=== PATIENT | female | born 1940 | race Caucasian/White ===

== ENCOUNTER 2017-07-13 22:34 | Emergency (ER) | payer MEDICARE, OTHER ==
[~2017-07-13] VITALS: Ht 157.5 cm; Wt 89.4 kg
[2017-07-13 23:02] LABS: HEMOGLOBIN 14.4 g/dL (12.2-16.2); LYMPH # 2.8 K/mm3 (0.7-4.5); LYMPH % 17.5 % (10-50.0)
[2017-07-13 23:29] LABS: NEUTROPHILS 83 % (42-76)
[2017-07-13 23:30] LABS: BUN 9 mg/dL (7-18); GFR (ESTIMATED) 98 ML/MIN (59-)
--- NOTE | 2017-07-14 00:24 | Emergency Room Report ---
History of Present Illness Time Seen by [id number] Presenting Problem in Triage Pt arrived:Walked Presenting Problem:PT C/O SOA THAT HAS GOTTEN PROGRESSIVELY WORSE THE EVENING HAS WENT ON. 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 N Clinical Suspician of Infection? N Mental Status: 1 - Regular (Normal Baseline) Sepsis Risk:Possible Sepsis Risk Have you (or family members/close friends) recently traveled outside the [place]? N If Yes, where/when: Have you had exposure to infectious disease within the past month? N TB? Other? 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 #60 Diclofenac Sodium 75 MG PO DAILY #60 FLUTICASONE/SALMETEROL (Advair 250-50 Diskus) 1 PUFF IN BID #60 OMEPRAZOLE MAGNESIUM (Prilosec 20MG) 20 MG PO DAILY History Medical History General CAD? No Angina: No NH: No Hypertension? Yes Hyperlipidemia? Yes CHF? No DVT? No PE? No COPD? No Asthma? Yes Anemia? No GERD? No Gastric ulcers? No GI Bleed? No Hernia? No Thyroid Problems? No Hypothyroidism? No CVA? No Seizures? No Diabetes? No End Stage Renal Disease? No UTI? Yes Stones? No BPH? No GB Disease: Yes Nephritic Syndrome? No Asplenia? No Hepatitis? No Sickle Cell Disease? No Arthritis? No Migraines? No Cataracts? Yes Glaucoma? No MRSA? No HIV? No TB? No Anxiety? No Depression? No Cancer? No More? No Immunization Hx DT/Tetanus < 1 Year Ago Flu 2013-14FSN Pneumonia Received In Past Surgical Hx Previous Surgery?Y HYSTERECTOMY GALLBLADDER Cholecystectomy APPENDECTOMY Family History Family Hx Diabetes No CAD Yes Hypertension Yes Hyperlipidemia No Cancer Yes TB No Social History Smoking Hx Smoker: Never Smoker Tobacco: No Alcohol Alcohol: No Drugs none Review of Systems All Other Systems Reviewed and Negative Constitutional denies fever Eyes denies drainage ENT denies: ear discharge, epistaxis, throat pain. Respiratory see HPI, cough, shortness of breath, denies wheezing Cardiovascular denies chest pain, denies palpitations, denies syncope Gastrointestinal see HPI, abdominal pain, denies diarrhea, denies vomiting Genitourinary denies: dysuria, frequency, hesitancy, hematuria. Musculoskeletal denies back pain, denies joint pain, denies joint swelling, denies neck pain Skin denies rash Psychiatric/Neurological denies headache, denies seizure Physical Exam Vital Signs Vital Signs Date Time Temp Pulse Resp B/P Pulse O2 O2 Flow FiO2 Ox Delivery Rate 07/14 0152 90 20 162/104 97 07/14 0111 95 20 173/105 97 4 07/14 0011 102 20 190/120 97 4 07/13 2326 110 20 206/120 95 4 07/13 2235 108 20 207/119 80 - WBC >12,000 or <4,000 or 10% bands? 2 or more SIRS Criteria Met? B/P:162/104 MAP:148 Creatinine >2.0? UA output<0.5ml/kg/hr for 2 hrs? Platelet count >100,000? Lactate >2.0mmol/1? INR >1.2 or PTT > than 60 sec? Evidence of Organ Dysfunction? Provider documented clinical suspician of infection? N Sepsis Criteria Count: 2 Sepsis Risk: Possible Sepsis Risk General Appearance no apparent distress Eye Exam - bilateral eye PERRL, bilateral eye EOMI Ear, Nose, Throat normal ENT inspection Neck supple Respiratory Status No: respiratory distress. Lung Sounds bilateral: rhonchi, wheezing. 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 No Results/Orders Laboratory Tests 07/13/172244: Lactic Acid 1.5 07/13/172244: B-Natriuretic Peptide 261 H 07/13/172244: Sodium 138, Potassium 4.3, Chloride 101, Carbon Dioxide 26, BUN 9, Creatinine 0.6, Estimated Creat Clear 116, Estimated GFR (MDRD) 98, Glucose 151 H, Calcium 9.2, Total Bilirubin 0.7, AST 52 H, ALT 42, Alkaline Phosphatase 114, Creatine Kinase 122, CK-MB (CK-2) Rel Index 0.8, CK and CKMB Interp 1.0, Troponin I < 0.02, Total Protein 8.0, Albumin 4.0, Globulin 4.0 H, Albumin/Globulin Ratio 1.0 L, WBC 16.0 H, RBC 5.19, Hgb 14.4, Hct 44.5, MCV 85.7, RDW 14.3, Plt Count 208, MPV 9.8, Gran % 75.1, Gran # 12.0 H, Total Counted 100, Lymphocytes % 17.5 , Monocytes % 3.6, Eosinophils % 3.3, Basophils % 0.4, Neutrophils 83 H, Band Neutrophils 7, Lymphocytes (Manual) 10, Lymphocytes # 2.8, Monocytes # 0.6, Eosinophils # 0.5 H, Basophils # 0.1, Platelet Estimate NORMAL, Polychromasia SL., Hypochromasia 1+, PUBS MCHC 32.3, MCH 27.7 Current Medication Orders Sig/Odin Start time Last Medication Dose Route Stop Time Status Admin Levofloxacin 500 MG ONCE ONE 07/14 215 DC 07/14 PO 07/14 Levofloxacin 0 .STK-MED ONE 07/14 210 DC .ROUTE Methylprednisolone 125 MG ONCE ONE 07/14 145 DC 07/14 Sodium Succinate IV 07/14 Methylprednisolone 0 .STK-MED ONE 07/14 132 DC Sodium Succinate .ROUTE Clonidine HCl 0.1 MG ONCE ONE 07/14 30 DC 07/14 PO 07/14 Clonidine HCl 0 .STK-MED ONE 07/14 30 DC .ROUTE Famotidine 20 MG ONCE ONE 07/14 30 DC 07/14 IV 07/14 003 0031 Famotidine 0 .STK-MED ONE 07/14 30 DC IV Metoclopramide HCl 10 MG ONCE ONE 07/14 30 DC 07/14 IVP 07/14 31 0032 Sodium Chloride 8 ML ONCE ONE 07/14 30 DC 07/14 IV 07/14 31 0037 Metoclopramide HCl 0 .STK-MED ONE 07/149 DC .ROUTE Albuterol/Ipratropium 0 .STK-MED ONE 07/13 2252 DC INH Albuterol/Ipratropium 3 ML ONCE ONE 07/13 2245 DC 07/13 INH 07/13 Sodium Chloride 10 ML PRN PRN 07/13 2245 AC IV 07/14 2242 Orders Procedure Date/time Status BRAIN NATRIURETIC PEPTIDE 07/14 44 Complete DIFFERENTIAL-WBC 07/13 2245 Complete RT REQUEST DUONEB 07/13 2243 Active 12 LEAD EKG-GRAHAM (INITIAL) 07/13 2242 Active ELECTROCARDIOGRAM REQUEST 07/13 2242 Active CHEST-PORTABLE 07/13 2242 Active IV SALINE LOCK 07/13 2242 Active CULTURE, BLOOD 07/13 2242 Active LACTIC ACID 07/13 2242 Complete CBC WITH AUTO DIFF 07/13 2242 Complete CARDIAC ENZYMES 07/13 2242 Complete CHEM 12 PROFILE 07/13 2242 Complete 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 Rhythm Normal Sinus Rhythm EKG compared w/(date of old), LBBB XRAY/CT/US XRAY/CT/US XRAY chest XR interpretation by reviewed by me Xray Results normal/NAD Departure Departure Time of Disposition 021 Disposition DC Home or Self Care(routine) Clinical Impression Primary Impression: Asthma Qualifiers: Asthma severity: moderate Asthma persistence: unspecified Asthma complication type: with acute exacerbation Qualified Code: J45.901 - Unspecified asthma with (acute) exacerbation Secondary Impressions: Bronchitis, LBBB (left bundle branch block) Condition STABLE Referrals Graham ROBERTSON,Daniel Horan (Family) Patient Instructions DI for Cough -- Adult Additional Instructions fluids and see pcp for follow up and recheck if needed and stop nsaif Discharge Counseling Counseled pt/family regarding diagnosis, test results, medications/RX, follow up needs Prescriptions Current Visit Scripts Prednisone (Prednisone 20MG) 20 MG PO BID #10 TAB Levofloxacin (Levaquin 500MG) 500 MG PO DAILY #7 TAB BENZONATATE (Benzonatate) 100 MG PO TID #15 CAP ED Critical Care Critical Care No at [id number]
[2017-07-14 02:19] VITALS: BP 162/104
--- NOTE | 2017-07-14 10:59 | RADIOLOGY REPORT PS360 ---
CHEST-PORTABLE COMPARISON: Portable upright chest 07/11/2013 HISTORY: Shortness of breath TECHNIQUE: Portable upright chest FINDINGS: The lung hollis are well expanded. There is no definite infiltrate seen though the left base is somewhat obscured by the left ventricle. There is borderline cardio megaly without failure. There are monitor lines overlying the chest. IMPRESSION: Probably normal portable chest, left lung base not adequately evaluated
--- OUTSIDE RECORDS SUMMARY | 2017-07-20 11:54 | External Medical Summary Rpt | CCD ---
Author Author , LORIE MELO Address Unknown Phone [email or web address] Name Relationship Address Phone PAOLA Next Of Kin Halima ACOSTA [address] [phone] [place] [id number] Purpose Continuity of Care Document - 07-11-2013 through 2016 Allergies, Adverse Reactions, Alerts Type Drug Allergy Adverse Reaction to Substance Substance Reaction Severity SULFA (sulfonamide) NA-NAUSEA/VOMITING Mild Latex I-RASH Unknown Medications Na ND Rx Da Fi Fi Am Da Di Ph RX Ph St me C No te ll ll ou ys ag ar # ys at rm s nt no ma ic us Or Da si cy ia de te s n re d SO 00 10 1 No DI 40 -0 UM 97 4- Lo 98 20 ng CH 30 13 er LO 9 RI Ac DE ti ve 0. 9% SO ANGELICA TI ON MA 00 10 0 No PA 90 -0 P 41 4- Lo 32 98 20 ng 5 26 13 er MG 1 Ac TA ti BL ve ET Sa 63 10 1 No li 80 -0 ne 70 4- Lo 10 20 ng Fl 07 13 er us 5 h Ac 10 ti ML ve Sy ri ng e 66 10 0 No PI 55 -0 RI 30 4- Lo N 00 20 ng 32 10 13 er 5 1 MG Ac ti TA ve BL ET CE 00 10 0 No FT 40 -0 RI 97 4- Lo AX 33 20 ng ON 30 13 er E 4 1 Ac GM ti ve AL Vital Signs 07-12-2013 00:52 Name Value Interpretat Reference Comment ion Range Body 98.3 [degF] Temperature BP 63 mm[Hg] Diastolic BP Systolic 110 mm[Hg] Heart 88 /min Rate/Pulse O2% 93 % Respiratory 20 /min Rate 07-11-2013 22:49 Name Value Interpretat Reference Comment ion Range Body 99 [degF] Temperature 07-11-2013 20:34 Name Value Interpretat Reference Comment ion Range BP 57 mm[Hg] Diastolic BP Systolic 105 mm[Hg] Heart 96 /min Rate/Pulse Respiratory 24 /min Rate 07-11-2013 20:20 Name Value Interpretat Reference Comment ion Range O2% 92 % Results Labs Lab Lab Date Result Refere Interp Status Commen Order Detail nces retati t Range on Differential panel, method unspecified - (07-13-2017 22:45) Blood = 100 complet total 017 #CELLS ed cell 22:45 count Neutrop = 83 % 42-76 complet hil 017 ed count 22:45 Blood SL. SL. complet polychr 017 L ed omasia 22:45 detecti on by light m Platele NORMAL complet t 017 NORMAL ed estimat 22:45 L e LYMPH 10 % 10-50 complet 017 ed 22:45 Hypochr 1+ 1+ L complet omatic 017 ed red 22:45 blood cell detecti on Automat = 7 % 0-8 complet ed 017 ed blood 22:45 band neutrop hil percent a CBC w auto diff (07-13-2017 22:45) Blood = 16.0 4.8-10. complet leukocy 017 K/MM3 8 ed parish 22:45 count (number /volume ) Automat = 14.3 11.5-17 complet ed 017 % .5 ed erythro 22:45 cyte distrib ution width Red = 5.19 4.2-5.4 complet blood 017 M/mm3 ed cell 22:45 count Blood = 208 142-424 complet platele 017 K/mm3 ed t count 22:45 Automat = 9.8 7.4-10. complet ed 017 fl 4 ed blood 22:45 platele t mean volume jose Colquitt % = 3.6 % 1.7-9.3 complet 017 ed 22:45 Absolut = 0.6 0.1-1.0 complet e 017 K/mm3 ed monocyt 22:45 e count Automat = 85.7 82.2-97 complet ed 017 fl .8 ed erythro 22:45 cyte mean corpusc ular v Automat = 32.3 31.8-35 complet ed 017 g/dl .4 ed erythro 22:45 cyte mean corpusc ular h Mean = 27.7 27-31.2 complet corpusc 017 pg ed ular 22:45 hemoglo bin (MCH) determ Lymphoc = 17.5 10-50.0 complet yte 017 % ed count, 22:45 blood, automat ed Absolut = 2.8 0.7-4.5 complet e 017 K/mm3 ed lymphoc 22:45 yte count Blood = 14.4 12.2-16 complet hemoglo 017 g/dL .2 ed bin 22:45 measure ment (mass/v olum Blood = 44.5 37.0-47 complet hematoc 017 % .0 ed rit 22:45 (volume fractio n) Granulo = 75.1 37.0-80 complet cyte 017 % .0 ed percent 22:45 age Blood = 12.0 1.8-7.8 complet granulo 017 K/mm3 ed cytes 22:45 automat ed count (numb Automat = 3.3 % 0.1-12. complet ed 017 0 ed blood 22:45 eosinop hils/10 0 leukocy t Automat = 0.5 0.0-0.4 complet ed 017 K/mm3 ed blood 22:45 eosinop hil count Baso % = 0.4 % 0.1-2.0 complet 017 ed 22:45 Automat = 0.1 0-0.2 complet ed 017 K/MM3 ed blood 22:45 basophi l count (count/ vo Brain natriuretic peptide (07-13-2017 22:45) Brain = 261 0-100 complet natriur 017 pg/mL ed etic 22:45 peptide Comprehensive metabolic panel (07-13-2017 22:45) Protein = 8.0 6.4-8.2 complet total 017 gm/dL ed ser/alexus 22:45 s ALT = 42 12-78 complet (SGPT) 017 U/L ed ser/alexus 22:45 s Serum = 52 15-37 complet or 017 U/L ed plasma 22:45 asparta te aminotr ansfera Comment: SERUM SLIGHTLY HEMOLYZED Serum = 138 136-145 complet sodium 017 mmoL/L ed measure 22:45 ment Serum = 4.3 3.5-5.1 complet potassi 017 mmoL/L ed um 22:45 measure ment Comment: SERUM SLIGHTLY HEMOLYZED Serum = 151 74-106 complet or 017 mg/dL ed plasma 22:45 glucose measure ment (mas Serum = 4.0 1.3-3.2 complet globuli 017 gm/dL ed n 22:45 measure ment (mass/v olume) Estimat = 98 59- complet ed 017 ML/MIN ed glomeru 22:45 lar filtrat ion rate (GF Comment: REFERENCE RANGE: >60 ML/MIN/1.73 SQUARE METERS Comment: If this patient is -Polish, then multiply the Comment: result by 1.210. Estimat = 116 50-200 complet ion of 017 ML/MIN ed creatin 22:45 ine renal clearan ce Serum = 0.6 0.55-1. complet or 017 mg/dL 02 ed plasma 22:45 creatin ine measure ment ( Carbon = 26 21.0-32 complet dioxide 017 mmoL/L .0 ed 22:45 measure ment Serum = 101 98-107 complet or 017 mmoL/L ed plasma 22:45 chlorid e measure ment (mo Serum = 9.2 8.5-10. complet or 017 mg/dL 1 ed plasma 22:45 calcium measure ment (mas Serum = 9 7-18 complet or 017 mg/dL ed plasma 22:45 urea nitroge n measure men Serum = 0.7 0.2-1.0 complet or 017 mg/dL ed plasma 22:45 total bilirub in measure m Serum = 114 46-116 complet or 017 U/L ed plasma 22:45 alkalin e phospha tase jose Serum = 4.0 3.4-5.0 complet or 017 gm/dL ed plasma 22:45 albumin measure ment (mas Serum = 1.0 1.1-1.8 complet or 017 ed plasma 22:45 albumin /globul in mass ra Cardiac enzymes (07-13-2017 22:45) Serum = 122 26-192 complet or 017 U/L ed plasma 22:45 creatin e kinase measure m Serum = 1.0 0.0-3.6 complet or 017 ng/mL ed plasma 22:45 creatin e kinase MB measu Serum < 0.02 0.00-0. complet or 017 ng/mL 06 ed plasma 22:45 troponi n i.cardi ac measu Serum = 0.8 0-4.0 complet or 017 U/L ed plasma 22:45 creatin e kinase MB (CK-M Blood lactic acid measurement (moles/vol (07-13-2017 22:45) Blood = 1.5 0.4-2.0 complet lactic 017 mmol/L ed acid 22:45 measure ment (moles/ vol Differential panel, method unspecified - (07-13-2017 22:45) Hypochr 1+ complet omia 017 ed [Presen 22:45 ce] in Blood LYMPH 10 % 10% - Normal complet 017 50% ed 22:45 Platele NORMAL complet ts 017 ed [Presen 22:45 ce] in Blood by Light microsc opy Polychr SL. complet omasia 017 ed [Presen 22:45 ce] in Blood by Light microsc opy COMPREHENSIVE METABOLIC PANEL (07-11-2013 20:20) Glucose 127 74-106 complet 013 mg/dL ed Bld-mCn 20:20 c BUN 22 7-18 complet Bld-mCn 013 mg/dL ed c 20:20 Creat 1.4 0.6-1.0 complet SerPl-m 013 mg/dL ed Cnc 20:20 GFR 37 59- complet (ESTIMA 013 ML/MIN ed YOUSIF) 20:20 Sodium 132 136-145 complet SerPl-s 013 mmoL/L ed Cnc 20:20 Potassi 3.2 3.5-5.1 complet um 013 mmoL/L ed SerPl-s 20:20 Cnc Chlorid 97 98-107 complet e 013 mmoL/L ed SerPl-s 20:20 Cnc CO2 2 25 21.0-32 complet SerPl-s 013 mmoL/L .0 ed Cnc 20:20 Calcium 2 7.8 8.5-10. complet 013 mg/dL 1 ed SerPl-m 20:20 Cnc Prot 6.0 6.4-8.2 complet SerPl-m 013 gm/dL ed Cnc 20:20 Albumin 07-11-2 2.3 3.4-5.0 complet 013 gm/dL ed SerPl-m 20:20 Cnc Globuli 3.7 1.3-3.2 complet n 013 gm/dL ed Ser-mCn 20:20 c Albumin 0.6 UNK 1.1-1.8 complet /Glob 013 ed SerPl-m 20:20 Rto Bilirub 1.3 0.2-1.0 complet 013 mg/dL ed SerPl-m 20:20 Cnc AST 07-11- 78 U/L 15-37 complet SerPl-c 013 ed Cnc 20:20 ALT 07-11- 129 U/L 30-65 complet SerPl-c 013 ed Cnc 20:20 ALP 07-11-2 174 U/L 50-136 complet SerPl-c 013 ed Cnc 20:20 CBC with AUTO DIFF (07-11-2013 20:20) WBC # 10-04-2 14.2 4.8-10. complet Bld 013 K/MM3 8 ed Auto 20:20 RBC # 10-04-2 4.24 4.2-5.4 complet Bld 013 M/mm3 ed Auto 20:20 Hgb 07-11-2 12.8 12.2-16 complet Bld-mCn 013 g/dL .2 ed c 20:20 Hct Fr 36.3 % 37.0-47 complet Bld 013 .0 ed 20:20 MCV RBC 07-11- 85.7 fl 82.2-97 complet 013 .8 ed 20:20 MCH RBC 07-11-2 30.1 pg 27-31.2 complet Qn 013 ed Auto 20:20 MEAN 2 35.2 31.8-35 complet CORPUSC 013 g/dl .4 ed ULAR 20:20 HGB CONC RDW RBC 07-11-2 14.9 % 11.5-17 complet Auto 013 .5 ed 20:20 Platele 07-11-2 189 142-424 complet t Bld 013 K/mm3 ed Ql 20:20 Manual MEAN 2 7.8 fl 7.4-10. complet PLATELE 013 4 ed T 20:20 VOLUME Granulo 07-11-2 85.4 % 37.0-80 complet cytes 013 .0 ed Fr Bld 20:20 Auto LYMPH % 1004-2 9.0 % 10-50.0 complet 013 ed 20:20 Monocyt 07-11-2 4.0 % 1.7-9.3 complet es Fr 013 ed Bld 20:20 Auto Eosinop 10-04-2 1.4 % 0.1-12. complet hil Fr 013 0 ed Bld 20:20 Auto Basophi -04-2 0.2 % 0.1-2.0 complet ls Fr 013 ed Bld 20:20 Auto Granulo 04-2 12.1 1.8-7.8 complet cytes # 013 K/mm3 ed Bld 20:20 Auto Lymphoc -04-2 1.3 0.7-4.5 complet ytes Fr 013 K/mm3 ed Bld 20:20 Auto Monocyt 10-04-2 0.6 0.1-1.0 complet es # 013 K/mm3 ed Bld 20:20 Auto Eosinop 10-04-2 0.2 0.0-0.4 complet hil # 013 K/mm3 ed Bld 20:20 Auto Basophi 10-04-2 0.0 0-0.2 complet ls # 013 K/MM3 ed Bld 20:20 Auto Encounters Encounter Start End Date Code Location Performer Type Date Emergency MANUEL Velazquez MD (ER) 3 19:58 3 00:55 [facility]
--- OUTSIDE RECORDS SUMMARY | 2017-07-20 11:54 | External Medical Summary Rpt | CCD ---
Demographics Preferred Language Central African Marital Status Unknown Hindu Affiliation Unknown Race Unknown Ethnic Group Unknown Author Author , LORIE MELO Address Unknown Phone Immunization No patient found.
--- OUTSIDE RECORDS SUMMARY | 2017-07-20 11:54 | External Medical Summary Rpt | CCD ---
Demographics Preferred Language Chilean Marital Status Unknown Congregational Affiliation Unknown Race Unknown Ethnic Group Unknown Author Author , LORIE MELO Address Unknown Phone Immunization No patient found.
--- OUTSIDE RECORDS SUMMARY | 2017-07-20 11:54 | External Medical Summary Rpt ---
Author Author [employer], [employer] Organization [employer] Address Unknown Phone Unavailable Results Natriutietic peptide B [Mass/volume] in Serum or Plasma Observa Value Referen Units Interpr Notes Date tion ce etation Range Natriutie 0 - 100 pg/mL High No Jul 13 tic 2016 peptide B on in 10:45 PM source [Mass/vol data ume] in Serum or Plasma CBC W Auto Differential panel in Blood Observa Value Referen Units Interpr Notes Date tion ce etation Range Basophils 0 - 0.2 K/MM3 Normal No Jul 132016 [#/volume on in 10:45 PM ] in source Blood by data Automated count Basophils 0.1 - 2.0 % Normal No Jul 13 /2016 leukocyte on in 10:45 PM s in source Blood by data Automated count Eosinophi 0.0 - 0.4 K/mm3 High No Jul 13 ls 2016 [#/volume on in 10:45 PM ] in source Blood by data Automated count Eosinophi 0.1 - % Normal No Jul 13 ls/100 12.0 inform2016 leukocyte on in 10:45 PM s in source Blood by data Automated count Granulocy 1.8 - 7.8 K/mm3 High No Jul 13 parish 2016 [#/volume on in 10:45 PM ] in source Blood by data Automated count Granulocy 37.0 - % Normal No Jul 13 parish/100 80.0 2016 leukocyte on in 10:45 PM s in source Blood by data Automated count Hematocri 37.0 - % Normal No Jul 13 t [Volume 47.0 2016 on in 10:45 PM Fraction] source of Blood data Hemoglobi 12.2 - g/dL Normal No Jul 13 n 16.2 2016 [Mass/vol on in 10:45 PM ume] in source Blood data Lymphocyt 0.7 - 4.5 K/mm3 Normal No Jul 13 es 2016 [#/volume on in 10:45 PM ] in source Unspecifi data ed specimen by Automated count Lymphocyt 10 - 50.0 % Normal No Oct 6 es informati 2017 [#/volume on in 10:45 PM ] in source Unspecifi data ed specimen by Automated count Erythrocy 27 - 31.2 pg Normal No Jul 6 te mean inform2016 corpuscul on in 10:45 PM ar source hemoglobi data n [Entitic mass] Erythrocy 31.8 - g/dl Normal No Jul 13 te mean 35.4 inform 2017 corpuscul on in 10:45 PM ar source hemoglobi data n concentra tion [Mass/vol ume] by Automated count Erythrocy 82.2 - fl Normal No Jul 13 te mean 97.8 inform2016 corpuscul on in 10:45 PM ar volume source [Entitic data volume] by Automated count Monocytes 0.1 - 1.0 K/mm3 Normal No Jul 6 inform2016 [#/volume on in 10:45 PM ] in source Blood by data Automated count Monocytes 1.7 - 9.3 % Normal No Jul 6 /100 inform2016 leukocyte on in 10:45 PM s in source Blood by data Automated count Platelet 7.4 - fl Normal No Jul 6 mean 10.4 inform2016 volume on in 10:45 PM [Entitic source volume] data in Blood by Automated count Platelets 142 - 424 K/mm3 Normal No Jul 6 inform2016 [#/volume on in 10:45 PM ] in source Blood data Erythrocy 4.2 - 5.4 M/mm3 Normal No Jul 6 parish informati 2016 [#/volume on in 10:45 PM ] in source Amniotic data fluid Erythrocy 11.5 - % Normal No Jul 6 te 17.5 2016 distribut on in 10:45 PM ion width source [Entitic data volume] by Automated count Leukocyte 4.8 - K/MM3 High No Oct 6 s 10.8 informati 2016 [#/volume on in 10:45 PM ] in source Blood data Differential panel, method unspecified - Observa Value Referen Units Interpr Notes Date tion ce etation Range Neutrophi 0 - 8 % Normal No Jul 6 ls.band informati 2017 form/100 on in 10:45 PM leukocyte source s in data Blood by Automated count Hypochr 1+ No No No No Jul 6 omia informa informa informa informa 2017 [Presen tion in tion in tion in tion in 10:45 ce] in source source source source PM Blood data data data data LYMPH 10 10 - 50 % Normal No Jul 6 inform2016 tion in 10:45 source PM data Platele NORMAL No No No No Oct 6 ts informa informa informa informa 2016 [Presen tion in tion in tion in tion in 10:45 ce] in source source source source PM Blood data data data data by Light microsc opy Polychr SL. No No No No Oct 6 omasia informa informa informa informa 2016 [Presen tion in tion in tion in tion in 10:45 ce] in source source source source PM Blood data data data data by Light microsc opy Neutrophi 42 - 76 % High No Jul 13 ls 2016 [#/volume on in 10:45 PM ] in source Blood by data Automated count Cells No #CELLS No No Oct 6 Counted ati ati 2016 Total [#] on in on in on in 10:45 PM in Blood source source source data data data Lactate [Moles/volume] in Blood Observa Value Referen Units Interpr Notes Date tion ce etation Range Lactate 0.4 - 2.0 mmol/L Normal No Jul 13 [Moles/vo 2016 lume] in on in 10:45 PM Blood source data CBC W Auto Differential panel in Blood Observa Value Referen Units Interpr Notes Date tion ce etation Range Basophils 0 - 0.2 K/MM3 Normal No February 232016 4:45 [#/volume on in PM ] in source Blood by data Automated count Basophils 0.1 - 2.0 % Normal No February 23 informati 2016 4:45 leukocyte on in PM s in source Blood by data Automated count Eosinophi 0.0 - 0.4 K/mm3 Normal No February 23 ls ati 2016 4:45 [#/volume on in PM ] in source Blood by data Automated count Eosinophi 0.1 - % Normal No February 23 ls/100 12.0 inform2016 4:45 leukocyte on in PM s in source Blood by data Automated count Granulocy 1.8 - 7.8 K/mm3 Normal No February 23 parish 2016 4:45 [#/volume on in PM ] in source Blood by data Automated count Granulocy 37.0 - % Normal No February 23 parish/100 80.0 informati 2016 4:45 leukocyte on in PM s in source Blood by data Automated count Hematocri 37.0 - % Normal No February 23 t [Volume 47.0 informati 2016 4:45 on in PM Fraction] source of Blood data Hemoglobi 12.2 - g/dL Normal No February 23 n 16.2 informati 2016 4:45 [Mass/vol on in PM ume] in source Blood data Lymphocyt 0.7 - 4.5 K/mm3 Normal No February 23 es informati 2016 4:45 [#/volume on in PM ] in source Unspecifi data ed specimen by Automated count Lymphocyt 10 - 50.0 % Normal No February 23 es informati 2016 4:45 [#/volume on in PM ] in source Unspecifi data ed specimen by Automated count Erythrocy 27 - 31.2 pg Normal No February 23 te mean informati 2016 4:45 corpuscul on in PM ar source hemoglobi data n [Entitic mass] Erythrocy 31.8 - g/dl Normal No February 23 te mean 35.4 informati 2016 4:45 corpuscul on in PM ar source hemoglobi data n concentra tion [Mass/vol ume] by Automated count Erythrocy 82.2 - fl Normal No February 23 te mean 97.8 informati 2016 4:45 corpuscul on in PM ar volume source [Entitic data volume] by Automated count Monocytes 0.1 - 1.0 K/mm3 Normal No February 23 informati 2016 4:45 [#/volume on in PM ] in source Blood by data Automated count Monocytes 1.7 - 9.3 % Normal No February 23 /100 informati 2017 4:45 leukocyte on in PM s in source Blood by data Automated count Platelet 7.4 - fl Normal No February 23 mean 10.4 informati 2016 4:45 volume on in PM [Entitic source volume] data in Blood by Automated count Platelets 142 - 424 K/mm3 Normal No February 23 informati 2016 4:45 [#/volume on in PM ] in source Blood data Erythrocy 4.2 - 5.4 M/mm3 Normal No February 23 parish informati 2016 4:45 [#/volume on in PM ] in source Amniotic data fluid Erythrocy 11.5 - % Normal No February 23 te 17.5 informati 2016 4:45 distribut on in PM ion width source [Entitic data volume] by Automated count Leukocyte 4.8 - K/MM3 Normal No February 23 s 10.8 informati 2016 4:45 [#/volume on in PM ] in source Blood data Erythrocyte sedimentation rate by Westergren method Observa Value Referen Units Interpr Notes Date tion ce etation Range Erythrocy 0 - 30 mm/hr Normal No February 23 te informati 2016 4:45 sedimenta on in PM tion rate source by data Westergre n method Basic metabolic panel in Blood Observa Value Referen Units Interpr Notes Date tion ce etation Range Urea 7 - 18 mg/dL Normal No February 23 nitrogen informati 2016 4:45 [Mass/vol on in PM ume] in source Serum or data Plasma Calcium 8.5 - mg/dL Normal No February 23 [Mass/vol 10.1 informati 2016 4:45 ume] in on in PM Serum or source Plasma data Chloride 98 - 107 mmoL/L Normal No February 23 [Moles/vo informati 2016 4:45 lume] in on in PM Serum or source Plasma data Carbon 21.0 - mmoL/L Normal No February 23 dioxide, 32.0 informati 2016 4:45 total on in PM [Moles/vo source lume] in data Serum or Plasma Creatinin 0.55 - mg/dL Normal No February 23 e 1.02 informati 2016 4:45 [Mass/vol on in PM ume] in source Serum or data Plasma Estimated 59- ML/MIN Low REFERENCE February 23 RANGE: 2016 4:45 glomerula >60 PM r ML/MIN/1. filtratio 73 SQUARE n rate METERSIf (GF this patient is -A merican, then multiply theresult by 1.210. Glucose 74 - 106 mg/dL Normal No February 23 [Mass/vol informati 2016 4:45 ume] in on in PM Serum or source Plasma data Potassium 3.5 - 5.1 mmoL/L Normal No February 23 informati 2016 4:45 [Moles/vo on in PM lume] in source Serum or data Plasma Sodium 136 - 145 mmoL/L Normal No February 23 [Moles/vo informati 2016 4:45 lume] in on in PM Serum or source Plasma data
--- OUTSIDE RECORDS SUMMARY | 2017-07-20 11:54 | External Medical Summary Rpt | CCD ---
Author Author , LORIE MEL[employer] Address Unknown Phone [email or web address] Support Name Relationship Address Phone PAOLA Next Of Kin Halima ACOSTA [address] [phone] [place] [id number] Purpose Continuity of Care Document - 07-11-2013 [...] blood 22:45 platele t mean volume jose [place] % = 3.6 % 1.7-9.3 complet 017 [...] SQUARE METERS Comment: If this patient is -[place]iv[place], then multiply the Comment: result by 1.210. [...] Velazquez MD (ER) 3 19:58 3 00:55 [facility]
--- OUTSIDE RECORDS SUMMARY | 2017-07-20 11:54 | External Medical Summary Rpt ---
Author Author [employer], [employer] Organization [employer] Address Unknown Phone Unavailable Results Natriutietic [...] - 7.8 K/mm3 High No Jul 13 aprish 2016 [#/volume on in 10:45 PM ] [...]
--- OUTSIDE RECORDS SUMMARY | 2017-07-20 11:54 | External Medical Summary Rpt | CCD ---
Author Author [employer] Organization [employer] Address Unknown Phone Unavailable Purpose Continuity of Care Document - through 2016
== END 2017-07-14 02:23 | disposition home or self-care (01) ==
LOC: ER 22:34
PROVIDERS: Emergency Medicine
DX: J45.901 Unspecified asthma with (acute) exacerbation (principal); I44.7 Left bundle-branch block, unspecified; I10 Essential (primary) hypertension; Z79.51 Long term (current) use of inhaled steroids; Z79.899 Other long term (current) drug therapy

== ENCOUNTER → 2017-07-16 | Outpatient (CLI) | payer MEDICARE, OTHER ==
[~2017-07-16] MED LIST: ADVAIR 250/5028 PUFF IN; DIAZEPAM5 M1 PO; DICLOFENAC SOD75 MG PO; DICLOFENAC SODI75 M2 PO; FLUOXETINE 10MG10 MG PO; LEVAQUIN 750 M750 MG PO; LEVAQUIN500 MG PO; LISINOPRIL10 MG PO; MAXZIDE 25 MG-31 TAB PO; METOPROLOL TART50 MG PO; PRAVACHOL 40MG40 MG PO; PREDNISONE 20MG20 MG PO; PREMARIN0.3 MG PO; PRILOSEC20 M1 PO; Prilosec20 MG PO; TESSALON PERLE100 MG PO; TYLENOL ES500 M1 PO
--- NOTE | 2017-07-16 13:27 | RADIOLOGY REPORT PS360 ---
CTA-CHEST HISTORY: SOA,DIFFICULTY BREATHING ORDERING PHYSICIAN: Daniel Stevenson MD PATIENT AGE: 76 years TECHNIQUE: Helical acquisition obtained following the bolus administration of 60 mL of Isovue 370 followed by a saline bolus. Axial, sagittal, and coronal reformatted images are generated and reviewed. COMPARISON: None FINDINGS: No evidence of pulmonary embolus or aortic aneurysm. Normal heart size. No evidence of pericardial effusion. There is an azygos fissure as a normal variant. A 8 mm peripheral nodular opacity is present in the inferior aspect of the right upper lobe laterally. There is a calcified granuloma in the right middle lobe laterally. There are mild atelectatic changes in the left lung base along with trace left pleural effusion. No acute bony anomalies. Upper abdominal images unremarkable. IMPRESSION: 1. No evidence of pulmonary was or aortic aneurysm. 2. Indeterminate 8 mm noncalcified nodule in the right upper lobe laterally. Recommend 3 month follow-up to confirm stability 3. Trace left-sided pleural effusion with minimal left basilar atelectasis
== END ==
LOC: RAD 12:06
DX: R06.02 Shortness of breath (principal)
CPT/HCPCS: Q9967

== ENCOUNTER → 2017-08-27 | Outpatient (CLI) | payer MEDICARE, OTHER ==
--- NOTE | 2017-08-27 16:49 | RADIOLOGY REPORT PS360 ---
KNEE-3 VIEWS-LT HISTORY: LT KNEE PAIN ORDERING PHYSICIAN: Daniel Stevenson MD PATIENT AGE: 76 years COMPARISON: None FINDINGS: No fracture or dislocation. No lytic or blastic change. Normal mineralization. No significant arthritic changes evident. There is minimal squaring off of the proximal tibia medially suggesting very early osteophyte formation. No other significant findings IMPRESSION: No acute finding, minimal osteoarthritic change medial compartment
== END ==
LOC: RAD 15:13
DX: M25.562 Pain in left knee (principal)

== ENCOUNTER → 2017-09-17 | Outpatient (CLI) | payer MEDICARE, OTHER ==
--- NOTE | 2017-09-17 10:38 | CARDIOVASCULAR REPORT ---
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 Cardiac cath right groin post 2 weeks IMPRESSIONS 1. No evidence of pseudoaneurysm 2. No evidence of arteriovenous fistula Noninvasive vascular study. Tables: (Report amended ) Electronically signed by: Roland Villavicencio [id number]
== END ==
LOC: RAD 10:00
DX: R10.31 Right lower quadrant pain (principal); R09.89 Other specified symptoms and signs involving the circulatory and respiratory systems